=== PATIENT | female | born 1950 | race African-American/Black ===

== ENCOUNTER 2021-03-17 15:13 | Inpatient (IN) | payer OTHER ==
[2021-03-17] MEDS ORDERED: ALBUTEROL SO4 2.5/IPRATROPIUM 0.5 INH SOL 3 ML VIAL.NEB. NEB ONE ×2 (16:07→16:38)
[2021-03-17] MEDS ORDERED: ACETAMINOPHEN 1000 MG/100 ML BAG IVPB ONE (16:11)
[2021-03-17] MEDS ORDERED: ACETAMINOPHEN INJECTION 100 ML IVPB ONE (16:38)
[2021-03-17 16:54] LABS: INR 1.18 (0.83-1.09); PROTHROMBIN TIME (PATIENT) 13.2 SEC (9.7-13.0)
[2021-03-17 16:56] LABS: BASO % 0.2 % (0-2.0); HEMATOCRIT 41.4 % (32.4-45.2); HEMOGLOBIN 13.7 GM/dL (10.7-15.3); LYMPH % 5.7 % (8-40); MCH 27.3 pg (25.7-33.7); MCHC 33.1 g/dl (32.0-36.0); MEAN CELL VOLUME 82.5 fl (80-96); MEAN PLT VOLUME 7.6 fl (7.5-11.1); MONO % 7.9 % (3.8-10.2); NEUT % 86.2 % (42.8-82.8); PLATELET COUNT 231 10^3/uL (134-434); RBC 5.02 M/mm3 (3.60-5.2); RDW 14.9 % (11.6-15.6); WHITE BLOOD COUNT 6.3 K/mm3 (4.0-10.0)
[2021-03-17 16:57] LABS: ACTIVATED PTT 27.9 SECONDS (25.2-36.5)
[2021-03-17 17:01] LABS: CHLORIDE 100 mmol/L (98-107); SODIUM 136 mmol/L (136-145)
[2021-03-17 17:04] LABS: ALBUMIN 3.2 g/dl (3.4-5.0); ANION GAP 9 MMOL/L (8-16); BLOOD UREA NITROGEN 17.6 mg/dL (7-18); CALCIUM 8.7 mg/dL (8.5-10.1); CO2 28 mmol/L (21-32)
[2021-03-17 17:05] LABS: GLUCOSE,RANDOM 109 mg/dL (74-106)
[2021-03-17 17:07] LABS: BILIRUBIN,DIRECT 0.3 mg/dL (0.0-0.2); CREATININE 1.1 mg/dL (0.55-1.3); SGOT/AST 41 U/L (15-37)
[2021-03-17 17:08] LABS: LDH 268 U/L (84-246); SGPT/ALT 24 U/L (13-61)
[2021-03-17 17:09] LABS: BILIRUBIN,TOTAL 0.9 mg/dL (0.2-1); TOT PROT 8.3 g/dl (6.4-8.2)
[2021-03-17 17:10] LABS: ALK PHOS 104 U/L (45-117)
[2021-03-17 17:11] LABS: VENOUS BASE EXCESS 0.3 mmol/L (-2-2); VENOUS O2 SATURATION 68.3 % (70-80); VENOUS PCO2 39.5 mmHg (38-52); VENOUS PH 7.415 (7.310-7.410)
[2021-03-17] MEDS ORDERED: SODIUM CHLORIDE 0.9% 500 ML INFUS.BAG IV ONE (18:59)
[2021-03-17] MEDS ORDERED: ACETAMINOPHEN 1000 MG/100 ML BAG IVPB PRN (20:45)
[2021-03-17] MEDS ORDERED: DEXAMETHASONE SOD PHOSPHATE 10 MG/1 ML VIAL IVPUSH SCH (20:45)
[2021-03-17 22:03] LABS: EPI CELLS >36 /uL (0-25.1); HYALINE CASTS 13 /uL (0-3.1); PH,URINE 5.5 (5.0-8.0); URINE APPEARANCE CLOUDY; URINE BACTERIA >9,000 /uL (0-1359); URINE BILIRUBIN NEGATIVE (NEGATIVE); URINE COLOR YELLOW; URINE GLUCOSE (UA) NEGATIVE (NEGATIVE); URINE KETONE NEGATIVE (NEGATIVE); URINE LEUK ESTERASE 1+ (NEGATIVE); URINE NITRITE NEGATIVE (NEGATIVE); URINE PROTEIN 1+ (NEGATIVE); URINE WBC 160 /uL (0-25.8)
[2021-03-17 22:19] LABS: URINE RBC 54.5 /uL (0-23.9)
[2021-03-18 00:16] VITALS: BMI 27.6
[2021-03-18] MEDS ORDERED: DEXAMETHASONE SOD PHOSPHATE 10 MG/1 ML VIAL IVPUSH SCH (01:45)
[2021-03-18] MEDS ORDERED: ALBUTEROL SO4 2.5/IPRATROPIUM 0.5 INH SOL 3 ML VIAL.NEB. NEB SCH (04:00)
[2021-03-18] MEDS ORDERED: PT OWN MED DRAWER 7, Y5N ONE (09:52)
[2021-03-18] MEDS ORDERED: ALBUTEROL SO4 HFA INHALER IH PRN ×2 (09:53→11:28)
[2021-03-18] MEDS ORDERED: ZINC SULFATE 220 MG CAPSULE (FP) PO SCH (10:00)
[2021-03-18] MEDS ORDERED: TRIAMTERENE AND HCTZ - 37.5 MG/25 MG CAPSULE PO SCH (10:00)
[2021-03-18] MEDS ORDERED: ASCORBIC ACID 250 MG TABLET (FP) PO SCH (10:00)
[2021-03-18] MEDS ORDERED: LIDOCAINE 5% TOPICAL PATCH TP SCH (10:00)
[2021-03-18] MEDS ORDERED: ERGOCALCIFEROL 8,000 UNITS/ML DROPSBTL PO SCH (10:00)
[2021-03-18] MEDS ORDERED: BUDESONIDE/FORMETEROL FUMARATE 160/4.5 mcg INHALER IH SCH (10:00)
[2021-03-18 10:38] LABS: BASO % 0.1 % (0-2.0); HEMATOCRIT 37.8 % (32.4-45.2); HEMOGLOBIN 12.3 GM/dL (10.7-15.3); LYMPH % 5.3 % (8-40); MCH 27.2 pg (25.7-33.7); MCHC 32.7 g/dl (32.0-36.0); MEAN CELL VOLUME 83.1 fl (80-96); MEAN PLT VOLUME 7.8 fl (7.5-11.1); MONO % 5.6 % (3.8-10.2); PLATELET COUNT 218 10^3/uL (134-434); RBC 4.55 M/mm3 (3.60-5.2); RDW 14.7 % (11.6-15.6); WHITE BLOOD COUNT 8.9 K/mm3 (4.0-10.0)
[2021-03-18 10:43] LABS: CALCIUM 8.1 mg/dL (8.5-10.1)
[2021-03-18 10:44] LABS: ALBUMIN 2.6 g/dl (3.4-5.0); BLOOD UREA NITROGEN 14.8 mg/dL (7-18); MAGNESIUM 2.2 mg/dL (1.8-2.4)
[2021-03-18] MEDS ORDERED: LACTATED RINGERS SOLUTION 1,000 ML IV SCH (10:45)
[2021-03-18 10:47] LABS: CREATININE 0.9 mg/dL (0.55-1.3); PHOSPHOROUS 3.6 mg/dL (2.5-4.9)
[2021-03-18 10:48] LABS: TOT PROT 7.1 g/dl (6.4-8.2)
[2021-03-18] MEDS ORDERED: DEXMEDETOMIDINE HCL 200 MCG/2 ML IVPB ONE (10:48)
[2021-03-18] MEDS ORDERED: SUCCINYLCHOLINE CHLORIDE 200 MG/10 ML SYRINGE ONE (10:50)
[2021-03-18] MEDS ORDERED: PROPOFOL 20 ML ONE ×4 (10:50)
[2021-03-18] MEDS ORDERED: MIDAZOLAM HCL 2 MG/2 ML SINGLE DOSE VIAL ONE (10:50)
[2021-03-18] MEDS ORDERED: ceFAZolin SODIUM 1 GM VIAL IVPB ONE (11:15)
[2021-03-18] MEDS ORDERED: ACETAMINOPHEN 1000 MG/100 ML BAG IVPB PRN (11:28)
[2021-03-18] MEDS ORDERED: ROCURONIUM BROMIDE 50 MG/5 ML SYRINGE ONE (12:47)
[2021-03-18] MEDS: LACTATED RINGERS SOLUTION 1,000 ML IV SCH (14:41)
[2021-03-18] MEDS ORDERED: DEXTROSE 5%-WATER - 50 ML IVPB ONE (16:40)
[2021-03-18] MEDS ORDERED: ceFAZolin SODIUM 1 GM VIAL ONE (16:40)
[2021-03-18] MEDS: CEFAZOLIN 1 GM in DEXTROSE 5%-WATER - 50 ML IVPB SCH (17:42)
[2021-03-18] MEDS ORDERED: CEFAZOLIN 1 GM in DEXTROSE 5%-WATER - 1 GM/50 ML IVPB IVPB SCH (18:00)
[2021-03-18] MEDS: ATORVASTATIN CA 80 MG TABLET (FP) PO SCH (21:24)
[2021-03-18] MEDS: LIDOCAINE PATCH REMOVAL MC SCH (21:24)
[2021-03-18] MEDS: BUDESONIDE/FORMETEROL FUMARATE 160/4.5 mcg INHALER IH SCH (21:29)
[2021-03-18] MEDS ORDERED: ATORVASTATIN CA 80 MG TABLET (FP) PO SCH (22:00)
[2021-03-18] MEDS ORDERED: LIDOCAINE PATCH REMOVAL MC SCH ×2 (22:00)
[2021-03-19] MEDS ORDERED: ceFAZolin SODIUM 1 GM VIAL ONE (00:04)
[2021-03-19] MEDS ORDERED: DEXTROSE 5%-WATER - 50 ML IVPB ONE (00:05)
[2021-03-19] MEDS: CEFAZOLIN 1 GM in DEXTROSE 5%-WATER - 50 ML IVPB SCH (01:26)
[2021-03-19 08:15] LABS: BASO % 0.1 % (0-2.0); HEMATOCRIT 31.8 % (32.4-45.2); HEMOGLOBIN 10.3 GM/dL (10.7-15.3); LYMPH % 8.8 % (8-40); MCHC 32.4 g/dl (32.0-36.0); MEAN CELL VOLUME 83.4 fl (80-96); MONO % 8.6 % (3.8-10.2); NEUT % 82.5 % (42.8-82.8); PLATELET COUNT 193 10^3/uL (134-434); RBC 3.81 M/mm3 (3.60-5.2); RDW 14.9 % (11.6-15.6); WHITE BLOOD COUNT 11.2 K/mm3 (4.0-10.0)
[2021-03-19 08:31] LABS: CALCIUM 7.8 mg/dL (8.5-10.1)
[2021-03-19 08:32] LABS: ALBUMIN 2.1 g/dl (3.4-5.0); BLOOD UREA NITROGEN 16.9 mg/dL (7-18); MAGNESIUM 2.2 mg/dL (1.8-2.4)
[2021-03-19 08:35] LABS: CREATININE 0.8 mg/dL (0.55-1.3)
[2021-03-19 08:36] LABS: BILIRUBIN,TOTAL 0.8 mg/dL (0.2-1); PHOSPHOROUS 2.6 mg/dL (2.5-4.9)
[2021-03-19] MEDS ORDERED: ENOXAPARIN NA (PORCINE) 40 MG/0.4 ML DISP.SYRIN SQ SCH (10:00)
[2021-03-19] MEDS ORDERED: PT OWN MED DRAWER 7, Y5N ONE (10:04)
[2021-03-19] MEDS: DEXAMETHASONE SOD PHOSPHATE 4 MG/1 ML VIAL IVPUSH SCH (11:00)
[2021-03-19] MEDS: LIDOCAINE 5% TOPICAL PATCH TP SCH (11:00)
[2021-03-19] MEDS: TRIAMTERENE AND HCTZ - 37.5 MG/25 MG CAPSULE PO SCH (11:00)
[2021-03-19] MEDS: ENOXAPARIN NA (PORCINE) 40 MG/0.4 ML DISP.SYRIN SQ SCH (11:00)
[2021-03-19] MEDS: ERGOCALCIFEROL 8,000 UNITS/ML DROPSBTL PO SCH (11:00)
[2021-03-19] MEDS: ZINC SULFATE 220 MG CAPSULE (FP) PO SCH (11:05)
[2021-03-19] MEDS: BUDESONIDE/FORMETEROL FUMARATE 160/4.5 mcg INHALER IH SCH ×2 (11:05→21:34)
[2021-03-19] MEDS: ASCORBIC ACID 250 MG TABLET (FP) PO SCH (11:08)
[2021-03-19] MEDS ORDERED: REMDESIVIR 200 MG in SODIUM CHLORIDE 250 ML IVPB ONE (11:30)
[2021-03-19] MEDS: LACTATED RINGERS SOLUTION 1,000 ML IV SCH ×2 (11:30→17:37)
[2021-03-19] MEDS: ATORVASTATIN CA 80 MG TABLET (FP) PO SCH (21:33)
[2021-03-20] MEDS: LIDOCAINE PATCH REMOVAL MC SCH ×2 (00:37→21:23)
[2021-03-20] MEDS: LACTATED RINGERS SOLUTION 1,000 ML IV SCH (06:06)
[2021-03-20 09:16] LABS: HEMATOCRIT 30.8 % (32.4-45.2); HEMOGLOBIN 10.2 GM/dL (10.7-15.3); MCH 27.6 pg (25.7-33.7); MCHC 33.3 g/dl (32.0-36.0); MEAN CELL VOLUME 83.1 fl (80-96); MEAN PLT VOLUME 8.2 fl (7.5-11.1); PLATELET COUNT 229 10^3/uL (134-434); RBC 3.71 M/mm3 (3.60-5.2); WHITE BLOOD COUNT 9.5 K/mm3 (4.0-10.0)
[2021-03-20 10:05] LABS: CALCIUM 7.6 mg/dL (8.5-10.1)
[2021-03-20 10:06] LABS: BLOOD UREA NITROGEN 23.7 mg/dL (7-18)
[2021-03-20 10:09] LABS: CREATININE 0.7 mg/dL (0.55-1.3)
[2021-03-20] MEDS ORDERED: cefTRIAXone SODIUM 1 GM VIAL ONE (11:49)
[2021-03-20] MEDS ORDERED: DEXTROSE 5%-WATER - 50 ML IVPB ONE (11:49)
[2021-03-20] MEDS ORDERED: PT OWN MED DRAWER 7, Y5N ONE (11:49)
[2021-03-20] MEDS: DEXAMETHASONE SOD PHOSPHATE 4 MG/1 ML VIAL IVPUSH SCH (11:53)
[2021-03-20] MEDS: LIDOCAINE 5% TOPICAL PATCH TP SCH (11:54)
[2021-03-20] MEDS: ENOXAPARIN NA (PORCINE) 40 MG/0.4 ML DISP.SYRIN SQ SCH (11:54)
[2021-03-20] MEDS: ERGOCALCIFEROL 8,000 UNITS/ML DROPSBTL PO SCH (11:54)
[2021-03-20] MEDS: TRIAMTERENE AND HCTZ - 37.5 MG/25 MG CAPSULE PO SCH (11:54)
[2021-03-20] MEDS: CEFTRIAXONE 1 GM in DEXTROSE 5%-WATER - 50 ML IVPB SCH (11:55)
[2021-03-20] MEDS: BUDESONIDE/FORMETEROL FUMARATE 160/4.5 mcg INHALER IH SCH ×2 (11:55→21:23)
[2021-03-20] MEDS: ASCORBIC ACID 250 MG TABLET (FP) PO SCH (11:55)
[2021-03-20] MEDS: ZINC SULFATE 220 MG CAPSULE (FP) PO SCH (11:55)
[2021-03-20] MEDS: REMDESIVIR 100 MG in SODIUM CHLORIDE 250 ML IVPB SCH (12:30)
[2021-03-20] MEDS: ATORVASTATIN CA 80 MG TABLET (FP) PO SCH (21:23)
[2021-03-21] MEDS ORDERED: cefTRIAXone SODIUM 1 GM VIAL ONE (10:39)
[2021-03-21] MEDS ORDERED: PT OWN MED DRAWER 7, Y5N ONE (10:39)
[2021-03-21] MEDS ORDERED: DEXTROSE 5%-WATER - 50 ML IVPB ONE (10:40)
[2021-03-21] MEDS: DEXAMETHASONE SOD PHOSPHATE 4 MG/1 ML VIAL IVPUSH SCH (10:41)
[2021-03-21] MEDS: CEFTRIAXONE 1 GM in DEXTROSE 5%-WATER - 50 ML IVPB SCH (10:41)
[2021-03-21] MEDS: ZINC SULFATE 220 MG CAPSULE (FP) PO SCH (10:41)
[2021-03-21] MEDS: REMDESIVIR 100 MG in SODIUM CHLORIDE 250 ML IVPB SCH (10:41)
[2021-03-21] MEDS: ASCORBIC ACID 250 MG TABLET (FP) PO SCH (10:41)
[2021-03-21] MEDS: LIDOCAINE 5% TOPICAL PATCH TP SCH (10:42)
[2021-03-21] MEDS: ERGOCALCIFEROL 8,000 UNITS/ML DROPSBTL PO SCH (10:42)
[2021-03-21] MEDS: ENOXAPARIN NA (PORCINE) 40 MG/0.4 ML DISP.SYRIN SQ SCH (10:43)
[2021-03-21] MEDS: BUDESONIDE/FORMETEROL FUMARATE 160/4.5 mcg INHALER IH SCH ×2 (10:43→21:47)
[2021-03-21] MEDS: TRIAMTERENE AND HCTZ - 37.5 MG/25 MG CAPSULE PO SCH (10:43)
[2021-03-21 10:55] LABS: HEMATOCRIT 33.1 % (32.4-45.2); HEMOGLOBIN 10.9 GM/dL (10.7-15.3); MCH 27.2 pg (25.7-33.7); MCHC 32.8 g/dl (32.0-36.0); MEAN CELL VOLUME 83.1 fl (80-96); MEAN PLT VOLUME 8.1 fl (7.5-11.1); PLATELET COUNT 291 10^3/uL (134-434); RBC 3.99 M/mm3 (3.60-5.2); RDW 15.1 % (11.6-15.6); WHITE BLOOD COUNT 10.3 K/mm3 (4.0-10.0)
[2021-03-21 11:16] LABS: CALCIUM 7.6 mg/dL (8.5-10.1)
[2021-03-21 11:17] LABS: BLOOD UREA NITROGEN 23.5 mg/dL (7-18)
[2021-03-21 11:20] LABS: CREATININE 0.7 mg/dL (0.55-1.3)
[2021-03-21 11:21] LABS: TOT PROT 6.4 g/dl (6.4-8.2)
[2021-03-21 11:22] LABS: BILIRUBIN,TOTAL 1.1 mg/dL (0.2-1)
[2021-03-21 11:46] LABS: ERYTHROCYTE SEDIMENTATION RATE 25 mm/hr (0-30)
[2021-03-21] MEDS ORDERED: ACETAMINOPHEN 500 MG TABLET (FP) PO PRN (15:30)
[2021-03-21] MEDS: ATORVASTATIN CA 80 MG TABLET (FP) PO SCH (21:46)
[2021-03-21] MEDS: LIDOCAINE PATCH REMOVAL MC SCH (21:46)
[2021-03-22 09:42] LABS: HEMATOCRIT 34.4 % (32.4-45.2); HEMOGLOBIN 11.1 GM/dL (10.7-15.3); MCH 26.8 pg (25.7-33.7); MCHC 32.3 g/dl (32.0-36.0); MEAN CELL VOLUME 82.8 fl (80-96); MEAN PLT VOLUME 7.9 fl (7.5-11.1); PLATELET COUNT 321 10^3/uL (134-434); RBC 4.15 M/mm3 (3.60-5.2); RDW 15.1 % (11.6-15.6); WHITE BLOOD COUNT 13.3 K/mm3 (4.0-10.0)
[2021-03-22 10:07] LABS: ALBUMIN 2.2 g/dl (3.4-5.0); BLOOD UREA NITROGEN 22.7 mg/dL (7-18); CALCIUM 7.8 mg/dL (8.5-10.1); MAGNESIUM 2.5 mg/dL (1.8-2.4)
[2021-03-22] MEDS ORDERED: PT OWN MED DRAWER 7, Y5N ONE (10:09)
[2021-03-22 10:10] LABS: CREATININE 0.7 mg/dL (0.55-1.3); PHOSPHOROUS 2.4 mg/dL (2.5-4.9)
[2021-03-22] MEDS ORDERED: DEXTROSE 5%-WATER - 50 ML IVPB ONE (10:10)
[2021-03-22] MEDS ORDERED: cefTRIAXone SODIUM 1 GM VIAL ONE (10:10)
[2021-03-22] MEDS: ERGOCALCIFEROL 8,000 UNITS/ML DROPSBTL PO SCH (10:11)
[2021-03-22] MEDS: CEFTRIAXONE 1 GM in DEXTROSE 5%-WATER - 50 ML IVPB SCH (10:11)
[2021-03-22] MEDS: LIDOCAINE 5% TOPICAL PATCH TP SCH (10:11)
[2021-03-22 10:12] LABS: BILIRUBIN,TOTAL 1.4 mg/dL (0.2-1); TOT PROT 6.5 g/dl (6.4-8.2)
[2021-03-22] MEDS: ZINC SULFATE 220 MG CAPSULE (FP) PO SCH (10:12)
[2021-03-22] MEDS: DEXAMETHASONE SOD PHOSPHATE 4 MG/1 ML VIAL IVPUSH SCH (10:12)
[2021-03-22] MEDS: ENOXAPARIN NA (PORCINE) 40 MG/0.4 ML DISP.SYRIN SQ SCH (10:12)
[2021-03-22] MEDS: BUDESONIDE/FORMETEROL FUMARATE 160/4.5 mcg INHALER IH SCH ×2 (10:12→21:22)
[2021-03-22] MEDS: TRIAMTERENE AND HCTZ - 37.5 MG/25 MG CAPSULE PO SCH (10:14)
[2021-03-22] MEDS: ASCORBIC ACID 250 MG TABLET (FP) PO SCH (10:14)
[2021-03-22] MEDS: REMDESIVIR 100 MG in SODIUM CHLORIDE 250 ML IVPB SCH (11:32)
[2021-03-22] MEDS: LIDOCAINE PATCH REMOVAL MC SCH (21:22)
[2021-03-22] MEDS: ATORVASTATIN CA 80 MG TABLET (FP) PO SCH (21:22)
[2021-03-23 10:02] LABS: HEMATOCRIT 34.1 % (32.4-45.2); HEMOGLOBIN 11.4 GM/dL (10.7-15.3); MCH 27.5 pg (25.7-33.7); MCHC 33.5 g/dl (32.0-36.0); MEAN CELL VOLUME 82.1 fl (80-96); MEAN PLT VOLUME 7.9 fl (7.5-11.1); PLATELET COUNT 384 10^3/uL (134-434); RBC 4.16 M/mm3 (3.60-5.2); RDW 14.8 % (11.6-15.6)
[2021-03-23] MEDS ORDERED: PT OWN MED DRAWER 7, Y5N ONE (10:19)
[2021-03-23] MEDS: ZINC SULFATE 220 MG CAPSULE (FP) PO SCH (10:24)
[2021-03-23] MEDS: ENOXAPARIN NA (PORCINE) 40 MG/0.4 ML DISP.SYRIN SQ SCH (10:24)
[2021-03-23] MEDS: ASCORBIC ACID 250 MG TABLET (FP) PO SCH (10:25)
[2021-03-23] MEDS: ERGOCALCIFEROL 8,000 UNITS/ML DROPSBTL PO SCH (10:25)
[2021-03-23] MEDS ORDERED: CEPHALEXIN MONOHYDRATE 500 MG CAPSULE (UD) PO ONE (10:26)
[2021-03-23] MEDS: TRIAMTERENE AND HCTZ - 37.5 MG/25 MG CAPSULE PO SCH (10:26)
[2021-03-23] MEDS: LIDOCAINE 5% TOPICAL PATCH TP SCH (10:27)
[2021-03-23] MEDS: DEXAMETHASONE SOD PHOSPHATE 4 MG/1 ML VIAL IVPUSH SCH (10:27)
[2021-03-23] MEDS: BUDESONIDE/FORMETEROL FUMARATE 160/4.5 mcg INHALER IH SCH (10:27)
[2021-03-23 10:34] LABS: ANISOCYTOSIS 0; HELMET CELLS 0; HOWELL-JOLLY BODIES 0; MACROCYTOSIS 0; OVALOCYTE 0; PLATELET ESTIMATE NORMAL; ROULEAU 0; SICKELED CELLS 0; TARGET CELLS 0; TEAR DROP CELLS 0; TOXIC GRANULATION 0
[2021-03-23 10:37] LABS: ALBUMIN 2.2 g/dl (3.4-5.0); BLOOD UREA NITROGEN 26.5 mg/dL (7-18)
[2021-03-23] MEDS: REMDESIVIR 100 MG in SODIUM CHLORIDE 250 ML IVPB SCH (10:37)
[2021-03-23 10:38] LABS: CALCIUM 7.9 mg/dL (8.5-10.1); MAGNESIUM 2.5 mg/dL (1.8-2.4)
[2021-03-23 10:40] LABS: CREATININE 0.8 mg/dL (0.55-1.3); PHOSPHOROUS 2.7 mg/dL (2.5-4.9)
[2021-03-23 15:12] VITALS: BP 136/86; PULSE 60; TEMP 98.5
== END 2021-03-23 18:05 | disposition home or self-care (01) | DRG 981 ==
LOC: JER 15:13 → JERBED 18:53 → J6S 03-18 00:06
PROVIDERS: ADMIT Hospitalist; ATTEND Internal Medicine
PROC: 0QS704Z Reposition Left Upper Femur with Internal Fixation Device, Open Approach (ICD-10-PCS; principal; 2021-03-18 10:02)
PROC: XW033E5 Introduction of Remdesivir Anti-infective into Peripheral Vein, Percutaneous Approach, New Technology Group 5 (ICD-10-PCS; 2021-03-19)
DX: U07.1 COVID-19 (principal); S72.142A Displaced intertrochanteric fracture of left femur, initial encounter for closed fracture; J96.01 Acute respiratory failure with hypoxia; J12.82 Pneumonia due to coronavirus disease 2019; N39.0 Urinary tract infection, site not specified; J44.9 Chronic obstructive pulmonary disease, unspecified; E78.5 Hyperlipidemia, unspecified; I10 Essential (primary) hypertension; B96.20 Unspecified Escherichia coli [E. coli] as the cause of diseases classified elsewhere; W01.0XXA Fall on same level from slipping, tripping and stumbling without subsequent striking against object, initial encounter; Y92.098 Other place in other non-institutional residence as the place of occurrence of the external cause
CPT/HCPCS: 36415; 70450-TC; 71045-TC-FY; 72125-TC; 72170-TC-FY; 73502-TC-LT-FY; 73552-TC-LT-FY; 76000-TC-FY; 80048; 80053; 81003; 82248; 82550; 82553; 82728; 82803; 83605; 83615; 83735; 84100; 84484; 85025; 85027; 85379; 85610; 85651; 85730; 86140; 87040; 87086; 87186; 87804; 93005; 93010; 94760; 94761; 97116-GP; 97162-GP; 99285-25; C9399; C9803; J0131; J1100; U0003; U0005